=== PATIENT | female | born 1945 | race Caucasian/White ===

== ENCOUNTER 2019-05-18 08:17 | Outpatient (CLI) | payer MEDICARE, OTHER ==
--- NOTE | 2019-05-18 15:16 | XRAY Report ---
Reason: LOW BACK PAIN, PAIN IN UNSPECIFIED HIP Procedure Date: 05/18/2019 Accession Number: [id number] / [id number] Procedure: XRN - Lumbar Spine 2 View CPT Code: FULL RESULT: EXAM: LUMBOSACRAL SPINE RADIOGRAPHY EXAM DATE: 05/18/2019 08:46 AM. CLINICAL HISTORY: Low back pain, pain in unspecified hip. COMPARISONS: None. TECHNIQUE: 3 views. FINDINGS: Alignment: Mild leftward lumbar scoliosis. Bones: Five zij-wsb-ldxahjr lumbar vertebral bodies are present. No fractures or bone lesions. Disks: Moderate narrowing L4-L5 and L5-S1. Facets: Mild hypertrophic changes bilaterally lower lumbar spine. Sacroiliac Joints: Unremarkable. Soft Tissues: Normal. The visualized bowel gas pattern is normal. IMPRESSION: Moderate degenerative changes lower lumbar spine. RADIA
--- NOTE | 2019-05-20 01:24 | XRAY Report ---
Reason: LOW BACK PAIN, PAIN IN UNSPECIFIED HIP Procedure Date: 05/18/2019 Accession Number: [id number] / [id number] Procedure: XRN - Hip w/Pelvis 2-3V RT CPT Code: FULL RESULT: EXAM: RIGHT HIP AND PELVIS RADIOGRAPHY EXAM DATE: 05/18/2019 08:46 AM. CLINICAL HISTORY: Hip pain. COMPARISON: None. TECHNIQUE: 1 view each of the pelvis and hip. FINDINGS: Bones: No fracture seen. No acute osseous abnormality. Joints: No dislocation seen. Joint spaces are relatively well preserved for age. Soft Tissues: Grossly unremarkable. IMPRESSION: 1. No acute abnormality seen in the pelvis or hip. RADIA
== END 2019-05-18 08:18 | disposition home or self-care (01) ==
LOC: DI.N 08:17
PROVIDERS: ATTEND Family Medicine
DX: M51.36 Other intervertebral disc degeneration, lumbar region (principal); M51.37 Other intervertebral disc degeneration, lumbosacral region; M47.816 Spondylosis without myelopathy or radiculopathy, lumbar region; M25.559 Pain in unspecified hip
CPT/HCPCS: 72100

== ENCOUNTER 2023-07-23 10:30 | Outpatient (CLI) | payer MEDICARE, OTHER | END 2023-07-23 23:59 | disposition short-term general hospital (02) | LOC: EMS 10:30 | DX: R07.89 Other chest pain (principal); R10.2 Pelvic and perineal pain; R10.30 Lower abdominal pain, unspecified | CPT/HCPCS: A0425; A0429 ==

== ENCOUNTER 2023-10-17 13:06 | Outpatient (CLI) | payer MEDICARE | END 2023-10-17 13:07 | disposition short-term general hospital (02) | LOC: EMS 13:06 | DX: R53.1 Weakness (principal); R63.4 Abnormal weight loss; R63.0 Anorexia; M54.50 Low back pain, unspecified; G89.29 Other chronic pain | CPT/HCPCS: A0425; A0429; A0888 ==

== ENCOUNTER 2023-11-18 11:08 | Outpatient (CLI) | payer MEDICARE ==
[2023-11-18 17:59] LABS: BASOPHILS # (AUTO) 0.1 10^3/uL (0.0-0.1); BASOPHILS % (AUTO) 1.3 %; EOSINOPHILS # (AUTO) 0.7 10^3/uL (0.0-0.7); EOSINOPHILS % (AUTO) 10.7 %; HCT - HEMATOCRIT 30.9 % (37.0-47.0); HGB - HEMOGLOBIN 9.3 g/dL (12.0-16.0); LYMPHOCYTES # (AUTO) 0.9 10^3/uL (1.5-3.5); LYMPHOCYTES % (AUTO) 13.2 %; MEAN CORPUSCULAR HEMOGLOBIN 31.3 pg (27.0-31.0); MEAN CORPUSCULAR HGB CONC 30.1 g/dL (32.0-36.0); MEAN PLATELET VOLUME 11.9 fL (7.9-10.8); MONOCYTES # (AUTO) 0.4 10^3/uL (0.0-1.0); MONOCYTES % (AUTO) 6.2 %; NEUTROPHILS # (AUTO) 4.7 10^3/uL (1.5-6.6); PLT - PLATELET COUNT 171 10^3/uL (130-450); RED BLOOD COUNT 2.97 10^6/uL (4.20-5.40); RED CELL DISTRIBUTION WIDTH 19.6 % (12.0-15.0); WHITE BLOOD COUNT 6.9 x10^3/uL (4.8-10.8)
[2023-11-18 18:15] LABS: ALBUMIN 4.3 g/dL (3.2-5.5); ALBUMIN/GLOBULIN RATIO 1.7 (1.0-2.2); BILIRUBIN,TOTAL 1.1 mg/dL (0.2-1.0); CALCIUM 11.2 mg/dL (8.5-10.3); CREATININE 0.9 mg/dL (0.6-1.3); POTASSIUM 3.9 mmol/L (3.5-4.5); TOTAL PROTEIN 6.9 g/dL (6.4-8.9)
[2023-11-18 18:28] LABS: THYROID STIMULATING HORMONE 2.92 uIU/mL (0.34-5.60)
== END 2023-11-18 11:09 | disposition home or self-care (01) ==
LOC: LAB.N 11:08
PROVIDERS: ATTEND Family Medicine
DX: E03.9 Hypothyroidism, unspecified (principal); I10 Essential (primary) hypertension; C50.919 Malignant neoplasm of unspecified site of unspecified female breast; D50.9 Iron deficiency anemia, unspecified
CPT/HCPCS: 36415; 80053; 84443; 85025

== ENCOUNTER 2023-12-02 11:16 | Outpatient (CLI) | payer MEDICARE | END 2023-12-02 23:59 | disposition critical access hospital (66) | LOC: EMS 11:16 | DX: R47.81 Slurred speech (principal); R53.1 Weakness; R00.0 Tachycardia, unspecified | CPT/HCPCS: A0425; A0429 ==

== ENCOUNTER 2023-12-02 11:37 | Emergency (ER) | payer MEDICARE ==
[2023-12-02 12:11] LABS: BASOPHILS # (AUTO) 0.1 10^3/uL (0.0-0.1); BASOPHILS % (AUTO) 0.9 %; EOSINOPHILS # (AUTO) 0.3 10^3/uL (0.0-0.7); EOSINOPHILS % (AUTO) 4.5 %; HCT - HEMATOCRIT 26.1 % (37.0-47.0); HGB - HEMOGLOBIN 8.1 g/dL (12.0-16.0); LYMPHOCYTES # (AUTO) 0.7 10^3/uL (1.5-3.5); LYMPHOCYTES % (AUTO) 10.3 %; MEAN CORPUSCULAR HEMOGLOBIN 31.9 pg (27.0-31.0); MEAN CORPUSCULAR VOLUME 102.8 fL (81.0-99.0); MEAN PLATELET VOLUME 9.1 fL (7.9-10.8); MONOCYTES # (AUTO) 0.3 10^3/uL (0.0-1.0); MONOCYTES % (AUTO) 4.4 %; NEUTROPHILS # (AUTO) 5.1 10^3/uL (1.5-6.6); NEUTROPHILS % (AUTO) 79.4 %; NRBC ABSOLUTE COUNT (AUTO) 0.02 x10^3/uL; NUCLEATED RED BLOOD CELLS AUTO 0.3 /100WBC; PLT - PLATELET COUNT 212 10^3/uL (130-450); RED BLOOD COUNT 2.54 10^6/uL (4.20-5.40); RED CELL DISTRIBUTION WIDTH 16.6 % (12.0-15.0); WHITE BLOOD COUNT 6.4 x10^3/uL (4.8-10.8)
[2023-12-02 12:15] LABS: INR 1.3 (0.8-1.2); PT - PROTHROMBIN TIME 13.9 secs (9.9-12.6)
[2023-12-02 12:23] LABS: ALBUMIN/GLOBULIN RATIO 1.5 (1.0-2.2); BILIRUBIN,TOTAL 1.5 mg/dL (0.2-1.0); CALCIUM 11.1 mg/dL (8.5-10.3); CREATININE 0.7 mg/dL (0.6-1.3); POTASSIUM 3.8 mmol/L (3.5-4.5); TOTAL PROTEIN 6.7 g/dL (6.4-8.9)
--- NOTE | 2023-12-02 12:24 | ED Physician Documentation ---
PD HPI FOCAL NEURO - Stated complaint Stated Complaint: WEAKNESS - Chief complaint Chief Complaint: Neuro - History obtained from History obtained from: Patient - Additional information Additional information: This is a tyler 78-year-old woman with stage IV metastatic breast cancer. She does not know if she has any metastases to brain but she does to bone. She has been off of treatment for that except for letrozole for the last month or 2 because her oncologist as there are no other treatment options for her. She says that he said he would refer her to hospice "when she was ready" but she is not in hospice at this time. Starting 3 days ago she developed a left facial droop and weakness of the left arm. Her gait is not affected. No headache. No history of stroke. PD PAST MEDICAL HISTORY - Past Medical History Past Medical History: Yes GI: GERD - Past Surgical History Past Surgical History: Yes - Present Medications Home Medications: Ambulatory Orders Medication Instructions Recorded Confirmed Aspirin Chewable [St Rasta 81 mg PO DAILY 12/15/13 12/15/13 Aspirin] Omeprazole [PriLOSEC] 20 mg PO DAILY 12/15/13 12/15/13 Penicillin Vk 500 mg PO Q6H 5 Days tablet 12/15/13 estradioL [Estrace] 1 mg PO DAILY 12/15/13 12/15/13 medroxyPROGESTERone [Provera] 2.5 mg PO DAILY 12/15/13 12/15/13 oxyCODONE/ACET 5/325 [Percocet 5 1 - 2 each PO Q4-6H PRN #20 tablet 12/15/13 mg/325 mg] Atorvastatin [Lipitor] 20 mg PO QPM #30 tablet 12/02/23 Clopidogrel Bisulfate [Plavix] 75 mg PO DAILY #30 tab 12/02/23 - Allergies Allergies/Adverse Reactions: Allergies Allergy/AdvReac Type Severity Reaction Status Date / Time No Known Drug Allergies Allergy Verified 12/02/23 11:46 - Social History Does the pt smoke?: No Smoking Status: Never smoker Does the pt drink ETOH?: No Does the pt have substance abuse?: No - Immunizations Immunizations are current?: Yes PD ED PE NORMAL - Vitals Vital signs reviewed: Yes - General General: Alert and oriented X 3, No acute distress - HEENT HEENT: PERRL, EOMI - Neck Neck: Supple, no meningeal sign, No bony TTP - Cardiac Cardiac: RRR, No murmur - Respiratory Respiratory: No respiratory distress, Clear bilaterally - Abdomen Abdomen: Non tender - Neuro Neuro: Alert and oriented X 3 Eye Opening: Spontaneous Motor: Obeys Commands Verbal: Oriented GCS Score: 15 NIHSS - Time Time: 12:20 - Level of Consciousness Level of consciousness: (0) Alert, Keenly responsive LOC Questions: (0) Answers both Q's correct LOC Commands: (0) Performs both correctly - Gaze Best Gaze: (0) Normal - Visual Visual: (0) No loss - Facial Palsy Facial Palsy: (2) Partial paralysis (left) - Motor Arms (both separate) Motor Arm (right): (0) No drift Motor Arm (left): (1) Drift - Motor Legs (both separate) Motor Leg (right): (0) No drift Motor Leg (left): (0) No drift - Limb Ataxia Limb Ataxia: (0) Absent - Sensory Sensory: (0) Normal - Best Language Best Language: (0) No aphasia - Dysarthria Dysarthria: (0) Normal - Extinction and Inattention (formally neg Extinction and inattention: (0) No abnormality - Total Score/Results Total Score/Result: 3 Results - Vitals Vitals: Vital Signs - 24 hr 12/02/23 12/02/23 11:42 13:45 Temperature 36.7 C 36.8 C Heart Rate 105 H 96 Respiratory 18 18 Rate Blood Pressure 131/91 H 156/95 H O2 Saturation 97 96 Oxygen O2 Source Room air - Labs Labs: Laboratory Tests 12/02/23 12/02/23 12/02/23 12:05 12:05 12:05 WBC 6.4 RBC 2.54 L Hgb 8.1 L Hct 26.1 L MCV 102.8 H MCH 31.9 H MCHC 31.0 L RDW 16.6 H Plt Count 212 MPV 9.1 Neut # (Auto) 5.1 Lymph # (Auto) 0.7 L Baldwin # (Auto) 0.3 Eos # (Auto) 0.3 Baso # (Auto) 0.1 Absolute Nucleated RBC 0.02 Nucleated RBC % 0.3 Manual Slide Review Indicated Platelet Estimate NORMAL (130-450,000) Platelet Morphology NORMAL APPEARANCE RBC Morph Micro Appear 2+ ANISOCYTOSIS PT 13.9 H INR 1.3 H Sodium 138 Potassium 3.8 Chloride 101 Carbon Dioxide 26 Anion Gap 11.0 BUN 10 Creatinine 0.7 Estimated GFR (MDRD) 81 L Glucose 112 H Calcium 11.1 H Total Bilirubin 1.5 H AST 17 ALT 5 L Alkaline Phosphatase 113 Total Protein 6.7 Albumin 4.0 Globulin 2.7 Albumin/Globulin Ratio 1.5 - Rads (name of study) CT of the head and CT angiography of the head showing diffuse osseous metastatic disease but no obvious stroke or vascular lesion. Relevant Findings:: Final report received, EMP independent interpretation of test MRI brain Relevant Findings:: Discussed with rads, EMP independent interpretation of test PD Medical Decision Making - ED course ED course: 78-year-old woman with metastatic breast cancer presents with concern for stroke symptoms. She is clearly outside the window for thrombolytics having started about [address] angiography and head imaging do not demonstrate any acute findings other than extensive bony metastases and subsequently an MRI did show a right jmienez radiata ischemic infarct explaining her symptoms. She is already taking baby aspirin daily and we will do DAPT for 3 weeks after which she will be on Plavix and we will also start a statin. Patient also complained of constipation and was given magnesium citrate. Departure - Departure Disposition: 01 Home, Self Care Clinical Impression: Cerebrovascular accident (CVA) Condition: Good Record reviewed to determine appropriate education?: Yes Instructions: ED Stroke Completed Prescriptions: Atorvastatin [Lipitor] 20 mg PO QPM #30 tablet Clopidogrel Bisulfate [Plavix] 75 mg PO DAILY #30 tab Comments: You were seen today for completed stroke on the right side of your brain affecting the left side of your body. Given the timeframe there is nothing we can do to reverse this stroke, but we are focusing on preventing any further strokes by giving you blood thinning medication and cholesterol medicine. You should continue to take baby aspirin daily for the first 3 weeks. After that you will just take the clopidogrel/Plavix. In those first 3 weeks you will take both. We are also starting cholesterol medicine. You need to follow-up with your doctor within the first week or 2 for recheck. Return for new or worsening symptoms. Given the spread of your cancer, you should talk with your oncologist about hospice. Forms: PCP List
[2023-12-02 12:26] LABS: PLATELET ESTIMATE, MANUAL NORMAL (130-450,000) (NORMAL); PLATELET MORPHOLOGY NORMAL APPEARANCE (NORMAL); RBC MORPHOLOGY (MULTIPLE) 2+ ANISOCYTOSIS (NORMAL); SLIDE REVIEW? Indicated
[2023-12-02] MEDS ORDERED: iohexoL-300 100 ML VIAL ONE (12:35)
--- NOTE | 2023-12-02 15:04 | CT Report ---
PROCEDURE: Head WO INDICATIONS: CVA sx, metastatic BRCA TECHNIQUE: Noncontrast 4.5 mm thick angled axial sections acquired from the foramen magnum to the vertex. For r adiation dose reduction, the following was used: automated exposure control, adjustment of mA and/or kV according to patient size. COMPARISON: None. FINDINGS: Image quality: Excellent. CSF spaces: Basal cisterns are patent. No extra-axial fluid collections. Ventricles are normal in size and shape. Brain: No midline shift. No intracranial masses or hemorrhage. Mccabe-white matter interface is norm al. Skull and face: Diffuse lytic bony lesions. Sinuses: Visualized sinuses and mastoids are clear. IMPRESSION: No acute intracranial pathology. Diffuse lytic bony metastases. Above discussed with ordering provider at 3:02 PM on 12/02/2023. Reviewed by: Kemar Higginbotham MD on 12/02/2023 3:03 PM PDT Approved by: Kemar Higginbotham MD on 12/02/2023 3:03 PM PDT Station ID: [id number]
--- NOTE | 2023-12-02 15:06 | CT Report ---
PROCEDURE: Angio Head/Neck INDICATIONS: CVA sx, metastatic BRCA TECHNIQUE: After the administration of intravenous contrast, 1 mm thick sections acquired from the aortic arch t hrough the [place]. 3-dimensional ydaaplt-fwqezutvp-fakbkpehkm (MIP) and/or volume renderin g reformats were acquired of the central intracranial vasculature and neck separately. For radiation dose reduction, the following was used: automated exposure control, adjustment of mA and/or kV acco rding to patient size. CONTRAST: 80ml omni 300 COMPARISON: None. FINDINGS: Image quality: Diagnostic. HEAD CT: CSF Spaces: Basal cisterns are patent. No extra-axial fluid collections. Ventricles are normal in size and shape. Brain: No significant abnormality is seen for scanning technique. Skull and face: Calvarium and visualized facial bones appear intact, without suspicious lesions. Sinuses: Visualized sinuses and mastoids are clear. HEAD CT ANGIOGRAPHY: Anterior circulation: Intracranial internal carotid arteries are normal in size and flow. The flow within the paired anterior cerebral arteries is normal and symmetric. The flow within the middle cer ebral arteries is normal and symmetric. The anterior communicating artery is seen. No aneurysms are seen. Posterior circulation: Visualized portions of the vertebral arteries demonstrate normal caliber, and join to form a normal appearing basilar artery. Flow within the posterior cerebral arteries is norm al and symmetric. No aneurysms are seen. NECK CT ANGIOGRAPHY: Carotid system: The great vessels demonstrate a conventional anatomy as they arise from the aortic a rch. The origins of the common carotid arteries appear patent. The common carotid arteries demonstr ate normal caliber and courses. The bifurcation regions are both widely patent. The internal caroti d arteries demonstrate normal calibers and courses. Posterior circulation: The origins of the vertebral arteries both appear widely patent. The more elias perior extracranial portions of both vertebral arteries also demonstrate normal courses and calibers. They join to form a normal appearing basilar artery. Soft tissues: Visualized neck soft tissues demonstrate no suspicious abnormalities. Bones: Diffuse osseous metastatic disease. Visualized cervical spine appears normally aligned. IMPRESSION: No significant intracranial arterial abnormality is seen. No significant abnormality is seen within the arteries of the neck. Diffuse osseous metastatic disease. The estimate of stenosis included in the report of the imaging study was calculated using the NASCET method Reviewed by: Kemar Higginbotham MD on 12/02/2023 3:05 PM PDT Approved by: Kemar Higginbotham MD on 12/02/2023 3:05 PM PDT Station ID: [id number]
[2023-12-02] MEDS ORDERED: GADOTERATE MEGLUMINE 5 MMOL/10 ML VIAL ONE (15:17)
[2023-12-02] MEDS: iohexoL-300 100 ML VIAL IVP ONE (16:19)
--- NOTE | 2023-12-02 16:26 | MRI Report ---
PROCEDURE: Brain W/WO INDICATIONS: CVA sx, metastatic BRCA CONTRAST: CLARISCAN 9.8 ML TECHNIQUE: Noncontrast axial T1 spin echo, axial T2 fast spin echo, sagittal and axial FLAIR, coronal T2 fast sp in echo, axial gradient echo, axial diffusion and ADC through the brain. After the administration of contrast, axial and coronal T1 spin echo with fat saturation through the brain. COMPARISON: None. FINDINGS: Image quality: Excellent. CSF spaces: Basal cisterns are patent. No extra-axial fluid collections. Ventricles are normal in size and shape. Questionable dural metastasis on the right cerebral convexity measuring 1.4 x 0.4 cm . Brain: No midline shift. No intracranial bleeds or masses. No abnormal intracranial enhancement. There is cerebral volume loss for age. There is periventricular white matter chronic small vessel is chemic change. The brainstem appears normal. Focus of restricted diffusion in the right jimenez radia ta (series 12, image 38). No chronic ischemic insults. Normal intravascular flow voids are present. Skull and face: Abnormal osseous or soft tissue within the lytic foci seen on comparison head CT. Orb its appear normal. Sinuses: Sinuses and mastoids appear clear. IMPRESSION: Acute infarct of the right jimenez radiata (series 12, image 38). Osseous metastatic disease with soft tissue masses. No extension beyond the calvarium. Questionable dural metastasis of the right cerebral convexity measuring 1.4 x 0.4 cm. Above discussed with Rio Butt MD at the time of dictation. Reviewed by: Kemar Higginbotham MD on 12/02/2023 4:24 PM PDT Approved by: Kemar Higginbotham MD on 12/02/2023 4:24 PM PDT Station ID: [id number]
[2023-12-02] MEDS: GADOTERATE MEGLUMINE 5 MMOL/10 ML VIAL IV ONE (16:36)
[2023-12-02] MEDS: CLOPIDOGREL 300 MG TABLET PO STA (16:37)
[2023-12-02] MEDS: MAGNESIUM CITRATE 296 ML BOTTLE PO STA (16:39)
[2023-12-02 17:23] VITALS: BP 148/88; O2SAT 97
== END 2023-12-02 17:29 | disposition home or self-care (01) ==
LOC: EDUNIT# → ED 11:37
DX: I63.89 Other cerebral infarction (principal); G81.94 Hemiplegia, unspecified affecting left nondominant side; C50.919 Malignant neoplasm of unspecified site of unspecified female breast; C79.51 Secondary malignant neoplasm of bone
CPT/HCPCS: 36415; 70450; 70496; 70498; 70553; 80053; 85025; 85610; 99284; A9270; A9575; Q9967